=== PATIENT | male | born 1940 | race Caucasian/White ===

== ENCOUNTER 2018-09-07 16:30 | Outpatient (CLI) | payer MEDICARE, BC ==
[2018-09-07 16:43] LABS: #Basophils 0.1 thou/uL (0.0-0.2); #Eosinphils 0.2 thou/uL (0.0-0.7); #Lymphocytes 1.9 thou/uL (1.20-3.40); #Monocytes 0.7 thou/uL (0.11-0.59); #Neutrophils 6.5 thou/uL (1.40-6.50); %Eosinophils 1.7 % (0.0-10.0); %Lymphocytes 20.5 % (21.0-51.0); %Monocytes 6.9 % (0.0-10.0); %Neutrophils 69.8 % (42.0-75.0); Hemoglobin 14.6 g/dL (14.0-18.0); Mean Corpuscular HGB CONC 30.4 g/dL (32.0-36.0); Mean Corpuscular Hemoglobin 29.4 pg (27.0-31.0); Mean Corpuscular Volume 96.7 fL (78.0-98.0); Mean Platelet Volume 6.6 fL (7.4-10.4); Platelet Count 189 thou/uL (130-400); RBC Distribution Width 14.8 % (11.5-14.5); Red Blood Cell (RBC) Count 4.95 mill/uL (4.70-6.10); White Blood Cell (WBC) Count 9.4 thou/uL (4.8-10.8)
[2018-09-07 16:54] LABS: ALT (SGPT) 30 U/L (8-55); AST (SGOT) 18 U/L (5-34); Albumin 3.9 g/dL (3.4-4.8); Alkaline Phosphatase 58 U/L (40-150); Anion Gap 12 mmol/L (10-20); BUN (Urea Nitrogen) 11 mg/dL (8.4-25.7); Bilirubin, Total 0.5 mg/dL (0.2-1.2); Calc. Creatinine Clearance 0 mL/min (70-130); Calcium 9.5 mg/dL (7.8-10.44); Carbon Dioxide 31 mmol/L (23-31); Chloride 99 mmol/L (98-107); Estimated GFR-MDRD 76; Globulin 2.6 g/dL (2.4-3.5); Glucose 87 mg/dL (83-110); Potassium 5.2 mmol/L (3.5-5.1); Protein, Total 6.5 g/dL (5.8-8.1); Sodium 137 mmol/L (136-145)
--- NOTE | 2018-09-07 17:15 | RAD ---
TWO VIEWS CHEST: 09/07/18 HISTORY: Patient was hospitalized for pneumonia, lung fibrosis. PA and lateral views of the chest is obtained on 09/07/18. Comparison made to previous exam from 07/07/17. Two views chest demonstrate extensive lung parenchyma fibrotic changes compatible with pulmonary fibr osis. Sternotomy wires seen. Cardiomegaly noted. No definite evidence of air space opacities seen to suggest obvious pneumonia. IMPRESSION: Extensive chronic lung fibrotic changes. POS: [facility]
== END 2018-09-07 16:31 | disposition home or self-care (01) ==
LOC: SCSRAD 16:30
PROVIDERS: ATTEND Family Medicine
DX: J12.9 Viral pneumonia, unspecified (principal)
CPT/HCPCS: 36415; 71046; 80053; 85025